=== PATIENT | male | born 1970 | race Caucasian/White ===

== ENCOUNTER 2016-08-25 02:54 | Emergency (ER) | payer OTHER ==
[~2016-08-25] VITALS: Ht 185.4 cm; Wt 144.0 kg
[~2016-08-25 02:54] MED LIST: GUAI100S6 PO; HYDR-3534 PO; MOBI15TA PO; ZITH250T PO; ZOFR4TAB3 SL
[2016-08-25 02:56] VITALS: BP 124/79; PULSE 95; RESP 18; TEMP 98.3; O2SAT 100
[2016-08-25] MEDS ORDERED: MELO-1 PO (03:02)
--- NOTE | 2016-08-25 03:25 | PD ---
HPI Chief Complaint: Fall Time Seen by Provider: 03:24 Travel History International Travel<30 days: No Contact w/Intl Traveler<30days: No Traveled to known affect area: No History of Present Illness HPI 45-year-old male came to the emergency room with history of right leg pain after he stepped in a pothole couple days ago. He was brought in by EMS and patient seemed to be very anxious and in significant distress. Vital signs were otherwise stable. No obvious deformity. Palpation was trying to show me the location of the pain started screaming in pain. PFSH Past Medical History Narrative Medical List of his past medical, surgical, social and family history as reviewed from the nursing note. Arthritis: Yes Asthma: Yes Blood Disorders: No Anxiety: No Depression: No Heart Rhythm Problems: No Cancer: No Cardiovascular Problems: No High Cholesterol: No Chemotherapy: No Chest Pain: No Congestive Heart Failure: No COPD: No Diabetes: No Diminished Hearing: No Endocrine: No Genitourinary: No Immune Disorder: No Musculoskeletal: Yes (spine) Neurologic: Yes (ELETROCUTED -RSD- R ARM AFFECTED) Psychiatric: No Reproductive: No Respiratory: Yes Immunizations Current: Yes Radiation Therapy: No Sleep Apnea: No Past Surgical History Appendectomy: Yes Cholecystectomy: Yes Genitourinary Surgery: Yes (inguinal hernia repair X2) Other Surgery: Yes (back x 3 hand x 2 ) Social History Alcohol Use: Yes (5-6 per WEEK) Tobacco Use: Yes (chew ONE CAN Q 3 DAYS) Substance Use: No Allergies-Medications (Allergen,Severity, Reaction): Coded Allergies: Cymbalta (Verified Allergy, Unknown, 06/24/15) Demerol (Verified Allergy, Unknown, 06/24/15) Lyrica (Verified Allergy, Unknown, 06/24/15) Neurontin (Verified Allergy, Unknown, 06/24/15) Comments List of his allergies reviewed from the nurse's note. Reported Meds & Prescriptions Reported Meds & Active Scripts Active Ibuprofen 600 Mg Tab 600 Mg PO Q6H PRN Reported Meloxicam 15 Mg Tab 15 Mg PO DAILY Narrative Medication List of his home medications reviewed from the nursing note. Review of Systems Except as stated in HPI: all other systems reviewed are Neg Physical Exam Narrative GENERAL: Awake, alert, morbidly obese, extremely anxious, significant distress SKIN: Focused skin assessment warm/dry. HEAD: Atraumatic. Normocephalic. EYES: Pupils equal and round. No scleral icterus. No injection or drainage. ENT: No nasal bleeding or discharge. Mucous membranes pink and moist. NECK: Trachea midline. No JVD. CARDIOVASCULAR: Regular rate and rhythm. No murmur appreciated. RESPIRATORY: No accessory muscle use. Clear to auscultation. Breath sounds equal bilaterally. GASTROINTESTINAL: Abdomen soft, non-tender, nondistended. Hepatic and splenic margins not palpable. MUSCULOSKELETAL: No obvious deformities. No clubbing. No cyanosis. No edema. Distal pulses present. Decreased range of motion at the right knee and hip joint due to the pain NEUROLOGICAL: Awake and alert. No obvious cranial nerve deficits. Motor grossly within normal limits. Normal speech. PSYCHIATRIC: Appropriate mood and affect; insight and judgment normal. Data Data Last Documented VS Vital Signs Date Time Temp Pulse Resp B/P Pulse Ox O2 Delivery O2 Flow Rate FiO2 08/25/16 02:56 98.3 95 18 124/79 100 Orders Ketorolac Inj (Toradol Inj) (08/25/16 03:45) Orphenadrine Inj (Norflex Inj) (08/25/16 03:45) Knee, Complete (4vws) (08/25/16 ) Femur (Ap & Lat/2vws) (08/25/16 ) Tibia/Fibula (Ap/Lat) (08/25/16 ) ^ Knee Immobilizer (08/25/16 04:51) Crutches (08/25/16 ) Immobilizer Knee 20 Inch (08/25/16 ) MDM Medical Decision Making Medical Screen Exam Complete: Yes Emergency Medical Condition: Yes Medical Record Reviewed: Yes Differential Diagnosis Knee effusion, femoral fracture, tib-fib fracture, knee sprain Narrative Course 4:57 AM patient was given IM Toradol and Norflex for the pain. X-ray of the femur, knee and tib-fib is within normal limits. There is no fracture. There is no effusion. Patient will be put in a knee immobilizer and will be discharged home on crutches. Patient's that he has his own orthopedist and he can follow-up with them. Procedures EKG Prior to Arrival: No Diagnosis Primary Impression: Right leg pain Referrals: Primary Care Physician 3 days Additional Instructions: Please follow-up with the orthopedist next week if the pain continues. Keep the leg elevated. Put ice on the affected area where there is pain. His crutches for ambulation and comfort. Scripts Ibuprofen 600 Mg [id number] Mg PO Q6H PRN (Pain/Inflammation) #28 TAB Ref 0 Prov:Venice Leung MD 08/25/16 Disposition: 01 DISCHARGE HOME Condition: Stable Venice Leung MD Aug 25, 2016 03:25
[2016-08-25] MEDS ORDERED: ORPHENADRINE INJ 60 MG/2 ML AMP IM ONE (03:45)
[2016-08-25] MEDS ORDERED: KETOROLAC TROMETHAMINE 30 MG/ML (IVP) VIAL IV PUSH ONE (03:45)
--- NOTE | 2016-08-25 04:34 | RADRPT ---
EXAM DATE/TIME: 08/25/2016 04:01 [facility] COMPARISON: No previous studies available for comparison. INDICATIONS : Patient states they stepped in a hole wrong. Pain from right hip to right ankle. MEDICAL HISTORY : None. SURGICAL HISTORY : None. ENCOUNTER: Initial ACUITY: 1 day PAIN SCORE: 10/10 LOCATION: Right Femur FINDINGS: Two view examination of the right femur demonstrates no evidence of fracture or dislocation. Bony mi neralization is normal. The soft tissue structures are intact. CONCLUSION: Intact right femur. Rajeev Manjarrez MD on August 25, 2016 at 4:32 Board Certified Radiologist. This report was verified electronically.
--- NOTE | 2016-08-25 04:48 | RADRPT ---
EXAM DATE/TIME: 08/25/2016 04:05 [facility] COMPARISON: No previous studies available for comparison. INDICATIONS : Patient states they stepped in a whole wrong. Pain from right hip to right ankle. MEDICAL HISTORY : None. SURGICAL HISTORY : None. ENCOUNTER: Initial ACUITY: 1 day PAIN SCORE: 10/10 LOCATION: Right Tib/Fib FINDINGS: Two view examination of the right tibia demonstrates no evidence of fracture or dislocation. Bony mi neralization is normal. The soft tissue structures are intact. CONCLUSION: Intact right tibia and fibula. Rajeev Manjarrez MD on August 25, 2016 at 4:47 Board Certified Radiologist. This report was verified electronically.
--- NOTE | 2016-08-25 04:48 | RADRPT ---
EXAM DATE/TIME: 08/25/2016 04:02 [facility] COMPARISON: No previous studies available for comparison. INDICATIONS : Patient states they stepped in a hole wrong. Pain from right hip to right ankle. MEDICAL HISTORY : None. SURGICAL HISTORY : None. ENCOUNTER: Initial ACUITY: 1 day PAIN SCORE: 10/10 LOCATION: Right Knee FINDINGS: Four view examination of the right knee demonstrates no evidence of fracture or dislocation. Bony mi neralization is normal. The articular surfaces are intact. The suprapatellar soft tissues have a no rmal configuration. CONCLUSION: Intact right knee. Rajeev Manjarrez MD on August 25, 2016 at 4:46 Board Certified Radiologist. This report was verified electronically.
[2016-08-25] MEDS ORDERED: IBUP-232 PO (04:59)
== END 2016-08-25 05:50 | disposition home or self-care (01) ==
LOC: NEPC 02:54
DX: M79.604 Pain in right leg (principal)
CPT/HCPCS: 73552; 73564; 73590; 96372; 96374; 99283; E0113; J1885; J2360; L1830